=== PATIENT | male | born 1985 | race African-American/Black ===

== ENCOUNTER 2019-10-29 12:46 | Emergency (ER) | payer BC, OTHER ==
[~2019-10-29] VITALS: Ht 165.1 cm; Wt 86.2 kg
[2019-10-29] MEDS ORDERED: TRAZODONE 150150 M1 PO (12:49)
[2019-10-29] MEDS ORDERED: CARBAMAZEPINE100 M2 PO (12:49)
[2019-10-29] MEDS ORDERED: BUTALB-APAP-CA1 EACH PO (16:41)
[2019-10-29 16:53] VITALS: BP 122/81
== END 2019-10-29 16:54 | disposition home or self-care (01) ==
LOC: ER 12:46
DX: G43.909 Migraine, unspecified, not intractable, without status migrainosus (principal); R42 Dizziness and giddiness; F17.210 Nicotine dependence, cigarettes, uncomplicated